=== PATIENT | female | born 1935 ===

== ENCOUNTER → 2018-02-14 17:20 | Outpatient (CLI) | payer OTHER | END | disposition home or self-care (01) | LOC: RAD 17:20 | DX: M17.0 Bilateral primary osteoarthritis of knee (principal) ==

== ENCOUNTER 2018-04-21 15:46 | Emergency (ER) | payer OTHER ==
[~2018-04-21] VITALS: Ht 152.4 cm; Wt 66.2 kg
[2018-04-21] MEDS ORDERED: SYNTHROID75 MCG (16:12)
[2018-04-21] MEDS ORDERED: LOSARTAN-HCTZ1 EAC1 (16:12)
[2018-04-21] MEDS ORDERED: SIMVASTATIN20 MG (16:13)
[2018-04-21] MEDS ORDERED: VASOFLEX FORTE1 EACH (16:13)
[2018-04-21] MEDS ORDERED: NORVASC5 MG (16:13)
[2018-04-21] MEDS ORDERED: FOLIC ACID1 MG (16:14)
[2018-04-21] MEDS ORDERED: LODINE XL500 MG (16:15)
[2018-04-21] MEDS ORDERED: VITAMIN B-12500 MC3 (16:15)
[2018-04-21] MEDS ORDERED: OSTERA TABLET1 EACH (16:16)
[2018-04-21] MEDS ORDERED: RESTORA CAPSUL1 EACH (16:16)
[2018-04-21] MEDS ORDERED: CALTRATE 600 +1 EACH (16:16)
[2018-04-21] MEDS ORDERED: TRAMADOL HCL50 MG PO (18:11)
== END 2018-04-21 19:05 | disposition home or self-care (01) ==
LOC: ER 15:46
DX: M25.561 Pain in right knee (principal)
CPT/HCPCS: 73721

== ENCOUNTER 2018-04-22 11:59 | Outpatient (CLI) | payer OTHER ==
[~2018-04-22 11:59] MED LIST: CALTRATE 600 +1 EACH; FOLIC ACID1 MG; LODINE XL500 MG; LOSARTAN-HCTZ1 EAC1; NORVASC5 MG; OSTERA TABLET1 EACH; RESTORA CAPSUL1 EACH; SIMVASTATIN20 MG; SYNTHROID75 MCG; TRAMADOL HCL50 MG PO; VASOFLEX FORTE1 EACH; VITAMIN B-12500 MC3
== END 2018-04-22 15:48 | disposition home or self-care (01) ==
LOC: MRI 11:59
DX: S83.203A Other tear of unspecified meniscus, current injury, right knee, initial encounter (principal); H25.011 Cortical age-related cataract, right eye; Z98.41 Cataract extraction status, right eye
CPT/HCPCS: 73721

== ENCOUNTER 2018-05-26 09:15 | Inpatient (IN) | payer OTHER ==
[~2018-05-26] VITALS: Ht 152.4 cm; Wt 65.8 kg
[2018-06-05] MEDS ORDERED: DUI500 PO (16:41)
[2018-06-05] MEDS ORDERED: XARELTO10 MG PO (16:41)
[2018-06-05] MEDS ORDERED: PERCOCET 5-3251 EACH PO (16:41)
== END 2018-06-05 18:17 | DRG 470 ==
LOC: O/R 06-03 05:20 → SURH 06-03 05:20
PROVIDERS: Orthopaedic Surgery
PROC: 0MNN0ZZ Release Right Knee Bursa and Ligament, Open Approach (ICD-10-PCS; 2018-06-03)
PROC: 0SRC0J9 Replacement of Right Knee Joint with Synthetic Substitute, Cemented, Open Approach (ICD-10-PCS; principal; 2018-06-03 07:00)
DX: M17.11 Unilateral primary osteoarthritis, right knee (principal); D62 Acute posthemorrhagic anemia; I10 Essential (primary) hypertension; M81.0 Age-related osteoporosis without current pathological fracture; E03.8 Other specified hypothyroidism

== ENCOUNTER 2022-03-23 09:05 | Outpatient (CLI) | payer OTHER ==
[~2022-03-23 09:05] MED LIST changes: +DUI500 PO; +PERCOCET 5-3251 EACH PO; +XARELTO10 MG PO
== END 2022-03-23 09:14 | disposition home or self-care (01) ==
LOC: SONOGRAMA 09:05
PROVIDERS: ATTEND Family Medicine Adult Medicine
DX: D25.1 Intramural leiomyoma of uterus (principal)

== ENCOUNTER 2022-09-11 10:39 | Outpatient (CLI) | payer OTHER | END 2022-09-11 10:49 | disposition home or self-care (01) | LOC: SONOGRAMA 10:39 | DX: R19.00 Intra-abdominal and pelvic swelling, mass and lump, unspecified site (principal) ==